=== PATIENT | male | born 1980 | race Two or more races ===

== ENCOUNTER 2022-07-13 09:40 | Inpatient (IN) | payer MEDICAID ==
[~2022-07-13] VITALS: Ht 170.2 cm; Wt 137.4 kg
--- NOTE | 2022-07-13 10:02 | NUR ---
/PA AT BEDSIDE FOR EVAL
--- NOTE | 2022-07-13 10:16 | NUR ---
COVID SWAB COLLECTED AND SENT TO LAB
[2022-07-13] MEDS ORDERED: Magnesium 1GM/D5W 100ML PREMIX 200 ML IV ONE (10:30)
[2022-07-13] MEDS ORDERED: methylPREDNISolone SOD SUCC 125 MG/2ML VIAL IV ONE (10:30)
[2022-07-13] MEDS ORDERED: ALBUTEROL FS 2.5 MG/3 ML VIAL.NEB CONTNEB ONE (10:30)
[2022-07-13] MEDS ORDERED: IPRATROPIUM NEB FS 0.5 MG/2.5 ML AMPUL.NEB NEB ONE (10:30)
[2022-07-13] MEDS ORDERED: Magnesium 1GM/D5W 100ML PREMIX 100 ML IV ONE (10:34)
[2022-07-13 10:38] LABS: BASOPHILS % (AUTO) 0.2 % (0.0-2.0); EOSINOPHILS % (AUTO) 1.6 % (0.0-6.0); HEMATOCRIT 43 % (39-51); HEMOGLOBIN 14.3 g/dL (13.5-17.5); LYMPHOCYTES # (AUTO) 1.6 K/uL (0.8-4.8); LYMPHOCYTES % (AUTO) 18.8 % (20.0-44.0); MEAN CORPUSCULAR HGB CONC 33 g/dl (31.0-36.0); MEAN CORPUSCULAR VOLUME 91 fL (80-96); MONOCYTES # (AUTO) 0.6 K/uL (0.1-1.30); MONOCYTES % (AUTO) 7.6 % (2.0-12.0); NEUTROPHILS % (AUTO) 71.8 % (43.0-81.0); PLATELET COUNT (AUTO) 299 K/uL (150-450); RED BLOOD CELL COUNT(AUTO) 4.67 MIL/uL (4.5-6.0); WHITE BLOOD COUNT (AUTO) 8.3 K/uL (4.3-11.0)
[2022-07-13] MEDS ORDERED: ALBUTEROL FS 2.5 MG/0.5 ML VIAL.NEB ONE ×2 (10:48→10:57)
[2022-07-13] MEDS ORDERED: IPRATROPIUM NEB FS 0.5 MG/2.5 ML AMPUL.NEB ONE (10:48)
[2022-07-13 11:01] LABS: ALANINE AMINOTRANSFERASE 53 U/L (12-78); ALBUMIN 3.5 g/dL (3.4-5.0); ALKALINE PHOSPHATASE 88 U/L (46-116); ASPARTATE AMINOTRANSFERASE 30 U/L (15-37); BILIRUBIN,DIRECT 0.1 mg/dL (0.0-0.2); BILIRUBIN,TOTAL 0.3 mg/dL (0.2-1.0); CALCIUM, SERUM 9.3 mg/dL (8.5-10.1); CARBON DIOXIDE 31 mmol/L (21-32); CHLORIDE 100 mmol/L (98-107); CREATININE 1.1 mg/dL (0.6-1.3); GLUCOSE 100 mg/dL (74-106); POTASSIUM 4.1 mmol/L (3.5-5.1); SODIUM SERUM 138 mmol/L (136-145); TOTAL PROTEIN, SERUM 8.4 g/dL (6.4-8.2); UREA NITROGEN, BLOOD 10 mg/dL (7-18)
--- NOTE | 2022-07-13 11:03 | NUR ---
PATIENT REFUSED ABG AFTER FIRST ATTEMPT. DR. NIELSEN WAS NOTIFIED. PATIENT IS ALERT AND ORIENTED. Addendum: 07/13/22 at 1105 by YAJAIRA BARROW RT Amended: Links added.
[2022-07-13] MEDS ORDERED: ALBUTEROL FS 2.5 MG/3 ML VIAL.NEB ONE (11:12)
[2022-07-13] MEDS ORDERED: methylPREDNISolone SOD SUCC 125 MG/2ML VIAL ONE (11:15)
--- NOTE | 2022-07-13 12:25 | NUR ---
MOVE SHEET SUBMITTED.
--- NOTE | 2022-07-13 12:32 | NUR ---
[facility] CALLED TWISTING DEPARTMENT END FINDER PAGED.
--- NOTE | 2022-07-13 12:45 | NUR ---
DR NIELSEN ON PHONE W/ DR CHEUNG
[2022-07-13] MEDS ORDERED: ACETAMINOPHEN 325 MG TABLET PO PRN (13:00)
[2022-07-13] MEDS ORDERED: ONDANSETRON HCL/PF 4 MG/2 ML VIAL IVP PRN (13:00)
[2022-07-13] MEDS ORDERED: MORPHINE SULFATE INJ 2 MG/ML DISP.SYRIN IV PRN (13:00)
[2022-07-13] MEDS ORDERED: ALBUTEROL FS 2.5 MG/0.5 ML VIAL.NEB NEB PRN (13:00)
--- NOTE | 2022-07-13 13:42 | NUR ---
room [id number]
--- NOTE | 2022-07-13 13:59 | NUR ---
SANK[facility]OUNTAIN, FOR REPORT, WILL CALL BACK
--- NOTE | 2022-07-13 14:29 | NUR ---
PT REPORT GIVEN TO [facility]
--- NOTE | 2022-07-13 14:57 | NUR ---
PT TRANSFERRED TO [facility] VIA [facility] ACLS PROTOCOL. WARM HANDOFF GIVEN TO SANK[facility] F[facility]AIN.
[2022-07-13] MEDS: methylPREDNISolone SOD SUCC 40 MG/ML VIAL IV SCH ×2 (15:30→23:19)
[2022-07-13 16:00] VITALS: BP 117/72
[2022-07-13] MEDS ORDERED: METHADONE HCL 10 MG TABLET PO ONE ×2 (17:00→17:30)
[2022-07-13] MEDS ORDERED: METHADONE HCL 10 MG TABLET ONE (17:31)
[2022-07-13] MEDS ORDERED: IPRATROPIUM/ALBUTEROL INHALER IH SCH (18:00)
--- NOTE | 2022-07-13 18:31 | NUR ---
RN NOTE ADMITTED FROM ED. PATIENT IS A/O X4, ON 02 AT 2 LPM VIA NC. AMBULATORY WITH STEADY GAIT. ABLE TO MAKE NEEDS KNOWN. IV ACCESS ON R AC #20G, SL, INTACT AND PATENT. INDEPENDENT WITH REPOSITIONING. SAFETY MEASURES MAINTAINED. BED IN LOWEST POSITION, BRAKES LOCKED. SIDE RAILS UP X2. CALL LIGHT WITHIN REACH. WILL ENDORSE CONTINUITY OF CARE TO ONCOMING SHIFT. METHADONE GIVEN ONCE ORDERED BY DR. CHEUNG. NEEDS TO CLARIFY DOSAGE WITH [employer] [facility] [phone]. UNABLE TO GET A HOLD OF THEM 'CAUSE THEY ARE ONLY OPEN FROM 6 AM-2PM. WILL ENDORSE
[2022-07-13] MEDS: ALBUTEROL FS 2.5 MG/0.5 ML VIAL.NEB NEB SCH (19:18)
[2022-07-13] MEDS: IPRATROPIUM NEB FS 0.5 MG/2.5 ML AMPUL.NEB NEB SCH (19:18)
--- NOTE | 2022-07-13 19:30 | NUR ---
SERVICE WRITER OPENING NOTE RECEIVED PT AWAKE IN BED. A/O X4 AND ABLE TO MAKE NEEDS KNOWN. PT ON O2 @ 2LPM VIA NC, TOLERATING WELL. NO SOB OR S/S OF RESPIRATORY DISTRESS. BREATHING EVEN AND UNLABORED. ON EXTERNAL COVERED BUTTON MAKER READING SR 74 BPM. IV ACCESS PILLO 20G SL, INTACT AND PATENT. SAFETY PRECAUTIONS IN PLACE. BED IN LOWEST LOCKED POSITION, HOB ELEVATED, SIDE RAILS UP X2, AND CALL LIGHT AND TABLE WITHIN REACH. ALL NEEDS MET AT THIS TIME.
[2022-07-13 20:59] VITALS: BP 136/91
[2022-07-13] MEDS: HEPARIN SODIUM, PORCINE 5000 UNITS/1 ML VIAL SQ SCH (21:17)
[2022-07-14] MEDS: IPRATROPIUM NEB FS 0.5 MG/2.5 ML AMPUL.NEB NEB SCH ×4 (02:06→20:02)
[2022-07-14] MEDS: ALBUTEROL FS 2.5 MG/0.5 ML VIAL.NEB NEB SCH ×4 (02:06→20:02)
[2022-07-14 04:53] VITALS: BP 116/75
[2022-07-14 05:46] LABS: BASOPHILS % (AUTO) 0.1 % (0.0-2.0); HEMATOCRIT 42 % (39-51); HEMOGLOBIN 14.1 g/dL (13.5-17.5); LYMPHOCYTES # (AUTO) 1.3 K/uL (0.8-4.8); LYMPHOCYTES % (AUTO) 8.3 % (20.0-44.0); MEAN CORPUSCULAR HGB CONC 34 g/dl (31.0-36.0); MEAN CORPUSCULAR VOLUME 91 fL (80-96); MONOCYTES # (AUTO) 0.4 K/uL (0.1-1.30); MONOCYTES % (AUTO) 2.6 % (2.0-12.0); NEUTROPHILS # (AUTO) 13.8 K/uL (1.8-8.9); PLATELET COUNT (AUTO) 315 K/uL (150-450); WHITE BLOOD COUNT (AUTO) 15.4 K/uL (4.3-11.0)
[2022-07-14 06:18] LABS: ALBUMIN 3.3 g/dL (3.4-5.0); BILIRUBIN,TOTAL 0.2 mg/dL (0.2-1.0); CALCIUM, SERUM 9.5 mg/dL (8.5-10.1); MAGNESIUM 2.6 mg/dL (1.8-2.4); PHOSPHORUS 4.6 mg/dL (2.5-4.9); POTASSIUM 4.2 mmol/L (3.5-5.1)
--- NOTE | 2022-07-14 06:48 | NUR ---
DISTILLERY LABORER CLOSING NOTE PT AWAKE IN BED. A/O X4 AND ABLE TO MAKE NEEDS KNOWN. PT ON O2 @ 2LPM VIA NC, TOLERATING WELL. NO SOB OR S/S OF RESPIRATORY DISTRESS. BREATHING EVEN AND UNLABORED. ON EXTERNAL INVESTIGATOR WELFARE READING SR 70 BPM. IV ACCESS PILLO 20G SL, INTACT AND PATENT. ALL DUE MEDS GIVEN ORDERED. SAFETY PRECAUTIONS IN PLACE AT ALL TIMES. BED IN LOWEST LOCKED POSITION, HOB ELEVATED, SIDE RAILS UP X2, AND CALL LIGHT AND TABLE WITHIN REACH. ALL NEEDS MET AT THIS TIME AND WILL ENDORSE TO ONCOMING NURSE FOR MI.
--- NOTE | 2022-07-14 07:30 | NUR ---
RN OPENING NOTES RECEIVED PATIENT IN BED, AWAKE, A/O X4, VERBALLY RESPONSIVE, NO SIGNS OF ACUTE DISTRESS NOTED. ON O2 @ 2LPM VIA N/C,BREATHING EVEN AND UNLABORED. NOTED WITH IV ACCESS ON RIGHT ANTECUBITAL AREA #20G, SALINE LOCKED, FLUSHES WELL. DENIES ANY PAIN OR DISCOMFORT AT THIS TIME. SAFETY MEASURE IN PLACE. BED IN LOWEST AND LOCKED POSITION, SIDE RAILS UP X2, CALL LIGHT PLACED WITHIN EASY REACH. WILL CONTINUE TO MONITOR PATIENT.
[2022-07-14 08:00] VITALS: BP 111/83
[2022-07-14] MEDS: methylPREDNISolone SOD SUCC 40 MG/ML VIAL IV SCH ×3 (08:04→23:05)
[2022-07-14] MEDS: HEPARIN SODIUM, PORCINE 5000 UNITS/1 ML VIAL SQ SCH ×2 (08:05→21:31)
[2022-07-14] MEDS ORDERED: METH10TA2 PO (09:11)
[2022-07-14] MEDS: METHADONE HCL 10 MG TABLET PO SCH (10:30)
[2022-07-14 12:00] VITALS: BP 109/79
[2022-07-14 16:00] VITALS: BP 136/75
--- NOTE | 2022-07-14 18:47 | NUR ---
RN CLOSING NOTE PATIENT IN BED, AWAKE, A/O X4, VERBALLY RESPONSIVE, NO SIGNS OF ACUTE DISTRESS NOTED. REMAINS STABLE ON O2 @ 2LPM VIA N/C, BREATHING EVEN AND UNLABORED. IV ACCESS ON LEFT ANTECUBITAL AREA #22G, SALINE LOCKED, FLUSHES WELL. ALL DUE MEDS GIVEN, TAKEN WELL. ON OIL FIELD ROUSTABOUT SHOWING SINUS RHYTHM, HR @66. SAFETY MEASURE IN PLACE. BED IN LOWEST AND LOCKED POSITION, SIDE RAILS UP X2, CALL LIGHT PLACED WITHIN EASY REACH. WILL ENDORSE TO NEXT SHIFT FOR CONTINUITY OF CARE.
--- NOTE | 2022-07-14 19:55 | NUR ---
ZIPPER JOINER OPENING NOTES: RECEIVED PATIENT AWAKE IN BED, BE DIN LOW POSITION, CALL LIGHTS WITHIN REACH, NO COMPLAIN OF PAIN AND DISCOMFORT AT THIS TIME, ON O2 INHALATION AT 2LPM [id number] WELL, PATIENT IS A/O X4 ABLE TO MAKE NEEDS KNOWN, AMBULATORY ON TELE MONITOR- [id number], PATIENT KEPT CLEAN AND DRY ALL NEEDS MET WILL CONTINUE TO MONITOR.
[2022-07-14 20:00] VITALS: BP 123/68
[2022-07-15] VITALS: BP 143/75
[2022-07-15] MEDS: ALBUTEROL FS 2.5 MG/0.5 ML VIAL.NEB NEB SCH ×3 (00:48→14:07)
[2022-07-15] MEDS: IPRATROPIUM NEB FS 0.5 MG/2.5 ML AMPUL.NEB NEB SCH ×3 (00:48→14:07)
[2022-07-15 04:00] VITALS: BP 115/67
--- NOTE | 2022-07-15 06:58 | NUR ---
RN CLOSING NOTES: PATIENT SLEEP IN BED COMFORTABLY, AROUSABLE TO VERBAL STIMULI, BED IN LOW POSITIN CALL LIGHTS WITHIN REACH, NO COMPLAIN OF PAIN AND DISCOMFORT AT THIS TIME,. ON ROOM AIR SATURATING WELL, PATIENT IS A/OX4 ABLE TO MAKE NEEDS KNOWN, ON TELE MONITOR SR-64, NO SYMPTOMS WAS OBSERVED PATIENT KEPT CLEAN AND DRY ALL NEEDS MET ENDORSE TO INCOMING SHIFT
[2022-07-15] MEDS: methylPREDNISolone SOD SUCC 40 MG/ML VIAL IV SCH (07:35)
--- NOTE | 2022-07-15 07:39 | NUR ---
PLATFORM LOADER OPENING NOTE RECEIVED PATIENT IN BED, ASLEEP, EASILY AROUSED, A/O X4, VERBALLY RESPONSIVE, NO SIGNS OF ACUTE DISTRESS NOTED. ON O2 @ 2LPM VIA N/C. PT BREATHING EVEN AND UNLABORED. PATIENT HAS IV ACCESS ON RIGHT ANTECUBITAL AREA #20G, SALINE LOCKED, FLUSHES WELL. DENIES ANY PAIN OR DISCOMFORT AT THIS TIME. SAFETY MEASURE IN PLACE. BED IN LOWEST AND LOCKED POSITION, SIDE RAILS UP X2, CALL LIGHT PLACED WITHIN EASY REACH. WILL CONTINUE TO MONITOR PATIENT.
[2022-07-15 08:24] VITALS: BP 128/79
[2022-07-15] MEDS: METHADONE HCL 10 MG TABLET PO SCH (08:32)
[2022-07-15] MEDS: HEPARIN SODIUM, PORCINE 5000 UNITS/1 ML VIAL SQ SCH (08:35)
[2022-07-15] MEDS ORDERED: METHADONE HCL 10 MG TABLET PO SCH (09:00)
[2022-07-15] MEDS: methylPREDNISolone SOD SUCC 125 MG/2ML VIAL IV SCH ×2 (11:08→13:00)
[2022-07-15] MEDS ORDERED: FLUT1BLS12 IH (12:30)
[2022-07-15] MEDS ORDERED: ALBU18HF2 INH (12:30)
[2022-07-15] MEDS ORDERED: PRED20TA PO (12:30)
[2022-07-15] MEDS ORDERED: PNEUMOCOCCAL 23-VAL P-SAC VAC 0.5 ML VIAL SQ ONE (13:30)
[2022-07-15] MEDS ORDERED: INFLUENZA VACCINE 2022-23 0.5 ML DISP.SYRIN IM ONE (13:30)
--- NOTE | 2022-07-15 15:12 | NUR ---
ENFORCEMENT MANAGER NOTE Patient did teach back of his home care discharge instructions in his own words. Peripheral IV catheter was removed fully intact without complications. Patient given both pneumovax and influenza vaccines per patient's request. Patient tolerated vaccine injections well. Patient signed understanding of home care discharge instructions and signed for having possession of all his listed belongings/valuables upon departure from the hospital. Patient departed from the hospital walking to his own car that he plans to drive himself home at 15:12 hours.
== END 2022-07-15 15:00 | disposition home or self-care (01) | DRG 141 ==
LOC: ER 09:45 → TELE 13:46
PROVIDERS: ADMIT Internal Medicine; ATTEND Internal Medicine
DX: J45.901 Unspecified asthma with (acute) exacerbation (principal); J96.21 Acute and chronic respiratory failure with hypoxia; E43 Unspecified severe protein-calorie malnutrition; E66.9 Obesity, unspecified; Z20.822 Contact with and (suspected) exposure to COVID-19; F11.20 Opioid dependence, uncomplicated; Z68.42 Body mass index [BMI] 45.0-49.9, adult
CPT/HCPCS: 36415; 71045-TC; 80048-TC; 80053-TC; 80076-TC; 83735-TC; 83880; 84100-TC; 84484-TC; 85025-TC; 87081-TC; 90732; 94799-TC; C9803; G0378; J1644; J2920; J2930; J3475; Q2036